=== PATIENT | female | born 1945 | race Caucasian/White ===

== ENCOUNTER 2018-09-08 11:41 | Inpatient (IN) | payer OTHER ==
[~2018-09-08] VITALS: Ht 165.1 cm; Wt 57.2 kg
--- NOTE | ~2018-09-08 | HC ---
[facility] [place] [address] CONSULTATION Name: CHANTEL CANTU Room #: 420-P [facility] IN M.R.#: [id number] Admission: 09/08/18 Attend Phys: Jewell Celis Discharge: Date of : 43 Report #: [id number] THIS REPORT FOR: //name// CC: Jhonathan Celis DATE OF SERVICE: 09/09/2018 CHIEF COMPLAINT: Right femoral neck fracture. HISTORY OF PRESENT ILLNESS: This frail 72-year-old female has dementia and confusion and lives in a memory care unit extended care facility. Another resident apparently fell landing upon her causing her to fall also. This resulted in pain involving the right lower extremity. She was brought to [facility] where x-rays confirmed a displaced right femoral neck fracture. At the time of my evaluation, she is not accompanied by family. She is obviously demented and confused and is unable to offer any history. She responds in only a limited fashion to my questions. The upper extremities seemed to have good range of motion without discomfort. The neck and back seemed to be well aligned without obvious discomfort. The right hip is uncomfortable with any attempted range of motion. There is slight shortening and rotation of the leg consistent with a proximal femur fracture. She does not seem to have significant discomfort at the knee or lower leg. The left lower extremity is less uncomfortable, but she does complain with movement at the left hip, although there is no apparent shortening or rotational deformity. X-rays of the right hip and knee reveal an unstable displaced fracture of the femoral neck, but no injuries involving the knee or tibia on the right side. I do not see x-rays of the left hip at this point. IMPRESSION AND PLAN: I think she does have a right femoral neck fracture, which will require surgical repair. I will discuss this with her family and durable power of employment law attorney. Pending their approval and scheduling issues, we may be able to proceed tomorrow with the surgery. I am concerned with her apparent subjective discomfort of the left hip as well and so, we will go ahead with x-rays there just to check. I anticipate there are no injuries there and probably just repair of the right hip hemiarthroplasty will be necessary. <ELECTRONICALLY SIGNED> By: Peter Feliciano MD 09/10/18 1149 [id number] Peter Feliciano MD /nt
--- NOTE | ~2018-09-08 | EKG ---
[place] [address] [facility] [employer] [place] [address] ELECTROCARDIOGRAM REPORT Name: CHANTEL CANTU Room #: 420-P AD[facility] IN M.R.#: [id number] Admission: 09/08/18 Attend Phys: Jewell Celis Discharge: Date of : 43 Report #: [id number] THIS REPORT FOR: //name// [facility] ED Test Date: 2018-09-08 Test Time: 14:40:24 Pat Name: CHANTEL CANTU Department: Room: [facility] Gender: F Candles Pourer: REED : 1945 Requested By: Gela Johnson Order Number: [id number] MD: Jose Craven Measurements Intervals [place] Rate: 92 P: 58 MD: 128 QRS: -9 QRSD: 87 T: 69 QT: 361 QTc: 447 Interpretive Statements Sinus rhythm Anteroseptal infarct, age indeterminate No previous ECG available for comparison Electronically Signed On 09-09-2018 8:48:08 CDT by Jose Craven [email or web address] <ELECTRONICALLY SIGNED> By: Jose Craven MD, [facility] 09/09/18 0848 1440 1440 Jose Craven MD, FACC /EPI
--- NOTE | ~2018-09-08 | O ---
[facility] [place] [address] [place] [place] [address] OPERATIVE REPORT Name: CHANTEL CANTU Room #: 420-P [facility] IN M.R.#: [id number] Admission: 09/08/18 Attend Phys: Jewell Celis Discharge: 09/14/18 Date of : 43 Report #: [id number] THIS REPORT FOR: //name// CC: Jhonathan Tafoya Jewell Celis DATE OF SERVICE: 09/10/2018 PREOPERATIVE DIAGNOSIS: Displaced right femoral neck fracture. POSTOPERATIVE DIAGNOSIS: Displaced right femoral neck fracture. PROCEDURE: Right hip hemiarthroplasty. SURGEON: Ariel Mckeon MD. SUPERINTENDENT REFUSE DISPOSAL: Milady James PA-C. INDICATION FOR SUPERINTENDENT REFUSE DISPOSAL: Throughout the case extensive retraction and manipulation of the hip was required including dislocation and reduction of the hip. This was afforded to me by my payroll human resources assistant. ANESTHESIA: General endotracheal. IMPLANTS: [employer] size 10 Conquest cemented femoral stem with a size 44+4 unipolar head. ESTIMATED BLOOD LOSS: 100 mL. COMPLICATIONS: None. SPECIMENS: None. CONDITION UPON LEAVING THE OPERATING ROOM: Stable. INDICATIONS FOR PROCEDURE: The patient is a 72-year-old female who had a fall and sustained a right displaced femoral neck fracture. After discussion with she and her family, they elected for a right hip hemiarthroplasty. DESCRIPTION OF PROCEDURE: Risks, benefits, alternatives, complications were discussed in detail with the patient including but not limited to risk of anesthesia, risk of damage to nerves, arteries, blood vessels, risk for infection, bleeding, risks for continued hip pain, leg length discrepancy, instability and need for reoperation. Informed consent was obtained from the patient. The right hip was appropriately marked in the preoperative holding area. IV Ancef was given for preoperative antibiotics. She was brought to the [address] [address] OPERATIVE REPORT Name: ALONDRA,CHANTEL Noe Room #: 420-P [facility] IN M.R.#: [id number] Admission: 09/08/18 Attend Phys: Jewell Celis Discharge: 09/14/18 Date of : 43 Report #: [id number] operating room and general endotracheal anesthesia was induced without complication. She was then transferred to the operating room table and placed in the left lateral decubitus position. Right hip and lower extremity were prepped and draped in normal sterile fashion. Timeout was performed properly identifying the patient and procedure as well as the instrumentation and implants. All in the operating room were in agreement. Standard posterior approach to the hip was made with 10 blade through the skin. Dissection was taken down to the fascia with Bovie cautery and Montez elevator was used to clean the fascia. Fresh 10 blade was used to make a fascial incision. This was taken proximally and distally with curved Aguero scissors. Charnley retractor was placed. Trochanteric bursa was taken down with Bovie cautery. Piriformis tendon was identified, tagged and taken down with Bovie. Short external rotators were also taken down with Bovie cautery. Capsulotomy was made and capsule ends were tagged for later repair. There was an obvious femoral neck fracture and a femoral neck cut was then made to clean up the fracture line with the oscillating saw. Femoral head was removed and sized, found to be a size 44. Size 44 femoral head trial was then placed in the acetabulum and found to have a good fit. Attention was then turned to the femur. This was reamed and broached up to a size 12 at which point, a size 12 broach was stable. This was trialed with a standard offset neck and a 44 head. Hip was reduced, taken through range of motion and found to be stable, found to have somewhat short leg length on the right compared to left. It was felt that it could be made up for with final implant. After this, hip was dislocated and the broach was removed. A final size 10 Conquest cemented stem was cemented in place using standard cementation techniques. After the cement cured, this was trialed with a 44+4 head. Hip was reduced, taken through range of motion, found to be stable, found to have equal leg length. Hip was dislocated again and a final size 44+4 unipolar cobalt chrome head was placed. Hip was reduced, taken through range of motion, found to be stable, found to have equal leg lengths. The wound was thoroughly irrigated with normal saline. Periarticular injection consisting of morphine, ropivacaine, epinephrine and Toradol was placed around the hip joint capsule. A gram of vancomycin was placed deep in the joint. The capsule and piriformis were repaired with 0 FiberWire. Fascia was closed with 0 Vicryl, skin was closed with 2-0 Vicryl and 3-0 Monocryl. Dermabond and a DEXTER dressing was applied. After this, the toenail of the fourth toe on the right foot was cut off using a bone cutter. The patient tolerated these procedures well and went to the room under care of anesthesia postoperatively. <ELECTRONICALLY SIGNED> By: Ariel Mckeon MD 09/16/18 1559 1306 1350 Ariel Mckeon MD /nt
[~2018-09-08 11:41] MED LIST: ARICEPT10 M1 PO; BENTYL 10 MG CA10 M1 PO; BISACODYL SUPP10 MG RECTAL; CITRATE OF MAG296 ML PO; COLACE100 MG PO; DULCOLAX5 MG PO; FIBERCON625 M1 PO; MIRALAX17 GM PO; MIRTAZAPINE7.5 MG PO
[2018-09-08 11:43] VITALS: BP 194/70
[2018-09-08 12:52] LABS: ABSOLUTE NEUTROPHILS 4.8 thou/uL (1.4-8.2); BASOPHILS 0.8 % (0.0-2.0); EOSINOPHILS 1.9 % (0.0-3.0); HEMATOCRIT 43.2 % (37.0-47.0); HEMOGLOBIN 14.7 gm/dL (12.0-15.0); LYMPHOCYTES 22.3 % (24.0-44.0); MCH 30.7 pg (26.0-34.0); MCV 90.2 fL (80.0-100.0); MONOCYTES 6.1 % (1.0-8.0); PLATELET COUNT 226 thou/uL (150-400); POLYS 68.9 % (36.0-66.0); RBC 4.79 mil/uL (4.20-5.00); RDW 13.6 % (10.5-14.5)
[2018-09-08 13:02] LABS: CALCIUM 9.2 mg/dL (8.5-10.1); CREATININE 0.9 mg/dL (0.6-1.0); POTASSIUM 4.3 mmol/L (3.5-5.1)
[2018-09-08 14:30] LABS: PROTIME 10.1 Seconds (9.3-11.4)
[2018-09-08 16:26] LABS: TSH 2.215 uIU/mL (0.358-3.740)
[2018-09-08 17:52] VITALS: BP 121/53
[2018-09-08 21:56] VITALS: BP 149/89
[2018-09-09 04:44] VITALS: BP 126/73
[2018-09-09 08:36] VITALS: BP 176/91
[2018-09-09 19:39] VITALS: BP 148/89
[2018-09-10 04:37] VITALS: BP 143/95
[2018-09-10 06:08] LABS: ALBUMIN 2.5 g/dL (3.4-5.0); CALCIUM 8.4 mg/dL (8.5-10.1); CREATININE 0.7 mg/dL (0.6-1.0); POTASSIUM 3.7 mmol/L (3.5-5.1); TOTAL BILIRUBIN 0.6 mg/dL (<0.1-1.0); TOTAL PROTEIN 7.1 g/dL (6.4-8.2)
[2018-09-10 07:53] VITALS: BP 179/76
[2018-09-10 13:54] LABS: HEMATOCRIT 47.2 % (37.0-47.0); HEMOGLOBIN 15.4 gm/dL (12.0-15.0); MCHC 32.7 g/dL (28.0-37.0); MCV 91.7 fL (80.0-100.0); RBC 5.15 mil/uL (4.20-5.00); RDW 13.6 % (10.5-14.5); WBC 11.5 thou/uL (4.0-11.0)
[2018-09-10 20:00] VITALS: BP 134/82
[2018-09-10 20:42] VITALS: BP 134/82
[2018-09-11 04:59] VITALS: BP 140/79
[2018-09-11 07:17] LABS: HEMATOCRIT 39.3 % (37.0-47.0); HEMOGLOBIN 13.5 gm/dL (12.0-15.0); MCH 30.9 pg (26.0-34.0); MCHC 34.4 g/dL (28.0-37.0); RBC 4.37 mil/uL (4.20-5.00); RDW 13.5 % (10.5-14.5); WBC 11.8 thou/uL (4.0-11.0)
[2018-09-11 08:10] VITALS: BP 158/53
[2018-09-11 17:00] VITALS: BP 151/62
[2018-09-11 19:40] VITALS: BP 147/52
[2018-09-12 03:37] VITALS: BP 140/71
[2018-09-12 05:16] LABS: HEMATOCRIT 37.5 % (37.0-47.0); MCH 30.9 pg (26.0-34.0); MCHC 34.6 g/dL (28.0-37.0); MCV 89.5 fL (80.0-100.0); RBC 4.19 mil/uL (4.20-5.00); RDW 13.3 % (10.5-14.5); WBC 9.2 thou/uL (4.0-11.0)
[2018-09-12 07:39] VITALS: BP 141/83
[2018-09-12 19:52] VITALS: BP 187/83
[2018-09-13 05:51] VITALS: BP 146/62
[2018-09-13 20:46] VITALS: BP 139/57
[2018-09-14 05:14] VITALS: BP 143/84
[2018-09-14 08:53] VITALS: BP 136/94
[2018-09-14 12:15] VITALS: BP 136/94
[2018-09-14 15:57] VITALS: BP 136/94
[2018-09-14] MEDS ORDERED: ACETAMINOP160 MG/5 M PO (16:08)
[2018-09-14 16:41] VITALS: BP 153/83
== END 2018-09-14 18:36 | DRG 469 ==
LOC: ER 11:41 → EROBS 14:21 → 4E 14:21
PROVIDERS: Hospitalist; Nurse Practitioner Family; Orthopaedic Surgery
PROC: 0SRR0J9 Replacement of Right Hip Joint, Femoral Surface with Synthetic Substitute, Cemented, Open Approach (ICD-10-PCS; principal; 2018-09-10)
PROC: 0HBRXZZ Excision of Toe Nail, External Approach (ICD-10-PCS; principal; 2018-09-10)
DX: S72.011A Unspecified intracapsular fracture of right femur, initial encounter for closed fracture (principal); G93.41 Metabolic encephalopathy; F23 Brief psychotic disorder; E46 Unspecified protein-calorie malnutrition; G30.9 Alzheimer's disease, unspecified; F02.80 Dementia in other diseases classified elsewhere, unspecified severity, without behavioral disturbance, psychotic disturbance, mood disturbance, and anxiety; F41.9 Anxiety disorder, unspecified; I10 Essential (primary) hypertension; K58.1 Irritable bowel syndrome with constipation; W03.XXXA Other fall on same level due to collision with another person, initial encounter; Y93.89 Activity, other specified; Y92.128 Other place in nursing home as the place of occurrence of the external cause; Y99.8 Other external cause status; Z90.49 Acquired absence of other specified parts of digestive tract; Z68.21 Body mass index [BMI] 21.0-21.9, adult; Z87.891 Personal history of nicotine dependence; Z79.899 Other long term (current) drug therapy; Z88.5 Allergy status to narcotic agent; Z23 Encounter for immunization
CPT/HCPCS: 10084; 50010; 50101; 50382; 50414; 51057; 51130; 51226; 51771; 53000; 53078; 54118; 56460; 56524; 56527; 56528; 56530; 57095; 57165; 62110; 62900; 70005